=== PATIENT | male | born 1930 | race Caucasian/White ===

== ENCOUNTER 2018-06-25 08:16 | Emergency (ER) | payer MEDICARE, BC ==
[2018-06-25] MEDS ORDERED: Adacel (T-DAP) 0.5 ML SYRINGE ONE (09:32)
--- NOTE | 2018-06-25 09:50 | CT ---
CT OF THE BRAIN WITHOUT CONTRAST: Date: 06/25/18 INDICATION: History of fall with head injury. COMPARISON: None. FINDINGS: There is suspicion for a small right parietal scalp contusion. The [place] lenses have been replaced. No acute infarct, hemorrhage, or hydrocephalus is present. The septum pellucidum and third ventricle are midline. Skull appears intact. Mastoid air cells and paranasal sinuses are clear. IMPRESSION: 1. No acute intracranial abnormality. 2. Right parietal scalp contusion. POS: [facility]
--- NOTE | 2018-06-25 09:56 | CT ---
CT CERVICAL SPINE WITHOUT CONTRAST: Date: 06/25/18 INDICATION: History of fall with neck pain. COMPARISON: None. FINDINGS: There is an ACDF spanning C7-T1 with solid osseous incorporation. 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 There is a prominent disc osteophyte complex at C5- 6, likely inducing at least moderate osseous central canal narrowing. Craniocervical junction appears within normal limits. No acute fracture is evident. Lung apices are clear. IMPRESSION: 1. No acute fracture or subluxation is evident. 2. Prominent disc osteophyte complex of C5-6 induces at least moderate osseous central canal narrowi ng. 3. 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 POS: [facility]
[2018-06-25] MEDS ORDERED: Lidocaine 2% 10 ML INJ ONE (10:13)
--- NOTE | 2018-06-27 19:29 | EKG ---
Test Reason : Blood Pressure : / mmHG Vent. Rate : 041 BPM Atrial Rate : 041 BPM P-R Int : 232 ms QRS Dur : 088 ms QT Int : 438 ms P-R-T Axes : 049 -30 024 degrees QTc Int : 361 ms Marked sinus bradycardia with 1st degree A-V block Left axis deviation Abnormal ECG Confirmed by MEGAN LATIF D.O. ([id number]), metropolitan editor MATT RONDON ([id number] on 06/27/2018 7:29:21 PM Referred By: Confirmed By:MEGAN LATIF D.O.
== END 2018-06-25 11:53 | disposition home or self-care (01) ==
LOC: ERS 08:16
DX: S61.411A Laceration without foreign body of right hand, initial encounter (principal); S61.216A Laceration without foreign body of right little finger without damage to nail, initial encounter; S00.03XA Contusion of scalp, initial encounter; S00.81XA Abrasion of other part of head, initial encounter; S00.211A Abrasion of right eyelid and periocular area, initial encounter; S80.212A Abrasion, left knee, initial encounter; S80.211A Abrasion, right knee, initial encounter; I10 Essential (primary) hypertension; Z87.891 Personal history of nicotine dependence; W19.XXXA Unspecified fall, initial encounter
CPT/HCPCS: 12002; 70450; 72125; 90471; 90715; 93005; J2001